=== PATIENT | female | born 1985 | race Caucasian/White ===

== ENCOUNTER 2017-03-26 18:59 | Emergency (ER) | payer SELFPAY ==
--- NOTE | 2017-03-26 19:47 | UC ---
Abdominal Pain Female HPI - HPI Summary HPI Summary: 31 yo female with lower abd pain 4 days Pain preceded nausea/vomiting and diarrhea vomiting has let up hurts to move has been diaphoretic no UTI symptoms now has lower back pain and leg pains weak - History of Current Complaint Chief Complaint: UCAbdominalPain Stated Complaint: ABDOMINAL COMPLAINT Time Seen by Provider: 03/26/17 19:38 Hx Obtained From: Patient Hx Last Menstrual Period: 3 wks ago Onset/Duration: Gradual Onset, Lasting Days Timing: Constant Severity Initially: Moderate Severity Currently: Severe Pain Intensity: 7 - worse at times Pain Scale Used: 0-10 Numeric Location: Discrete At: RLQ, Discrete At: LUQ, Suprapubic Character: Aching, Cramping, Sharp Aggravating Factor(s): Food Alleviating Factor(s): Nothing Associated Signs and Symptoms: Positive: Diaphoresis, Back Pain, Decreased Appetite, Nausea, Vomiting, Diarrhea Allergies/Adverse Reactions: Allergies Allergy/AdvReac Type Severity Reaction Status Date / Time No Known Allergies Allergy Verified 03/26/17 19:31 Home Medications: Home Medications Ibuprofen TAB* [Advil TAB*] 2 cap PO BID PRN 03/26/17 [History Confirmed ] PMH/Surg Hx/FS Hx/Imm Hx Previously Healthy: Yes - Surgical History Surgical History: Yes Surgery Procedure, Year, and Place: tonsils - Family History Known Family History: Positive: Hypertension - Social History Alcohol Use: Occasionally Substance Use Type: None Smoking Status (MU): Never Smoked Tobacco Review of Systems Constitutional: Fatigue Skin: Negative Eyes: Negative ENT: Negative Respiratory: Negative Cardiovascular: Negative Gastrointestinal: Abdominal Pain, Vomiting, Diarrhea, Nausea Genitourinary: Negative Motor: Negative Neurovascular: Negative Musculoskeletal: Negative Neurological: Negative Psychological: Negative Is Patient Immunocompromised?: No All Other Systems Reviewed And Are Negative: Yes Physical Exam Triage Information Reviewed: Yes Appearance: Well-Appearing, No Pain Distress, Well-Nourished Vital Signs: Initial Vital Signs Temp 97.8 F 03/26/17 19:26 Pulse 72 03/26/17 19:26 Resp 12 03/26/17 19:26 BP 128/80 03/26/17 19:26 Pulse Ox 99 03/26/17 19:26 Vital Signs Reviewed: Yes Eyes: Positive: Conjunctiva Clear ENT: Positive: Hearing grossly normal, Pharynx normal, TMs normal. Negative: Nasal congestion, Nasal drainage, Trismus, Muffled/hoarse voice Neck: Positive: Supple, Nontender, No Lymphadenopathy Respiratory: Positive: Lungs clear, Normal breath sounds, No respiratory distress, No accessory muscle use Cardiovascular: Positive: RRR, No Murmur Abdomen Description: Positive: No Organomegaly, Soft, Other: - see image. Negative: Nontender Bowel Sounds: Positive: Present Musculoskeletal: Positive: ROM Intact, No Edema Neurological: Positive: Alert Psychological Exam: Normal Skin Exam: Normal Abd Pain Female Course/Dx - Course Course Of Treatment: see urine result. Will send pt to ER via EMS for evaluation of RLQ abd pain. discussed with Dr Callaway ....to [facility] [place] [facility] - Differential Dx/Diagnosis Provider Diagnoses: abdominal pain of uncertain cause Discharge - Discharge Plan Condition: Good Disposition: TRANS HIGHER LVL OF CARE FAC Images Front/Back of Body, Lg ([place]): 1 - tender across lower abd, worse in the RLQ
[2017-03-26] MEDS ORDERED: NS 0.9% 1000 ML* 1,000 ML BOLUS ONE (20:41)
[2017-03-26 21:16] VITALS: BP 115/70
== END 2017-03-26 21:20 | disposition short-term general hospital (02) ==
LOC: UCEAST 18:59
DX: R10.30 Lower abdominal pain, unspecified (principal); R11.2 Nausea with vomiting, unspecified; R19.7 Diarrhea, unspecified; R53.83 Other fatigue; M54.5 Low back pain; M79.605 Pain in left leg; M79.604 Pain in right leg
CPT/HCPCS: 81003; 87086; 99203; G0463

== ENCOUNTER 2017-03-26 21:42 | Emergency (ER) | payer BC ==
[2017-03-26] MEDS ORDERED: Ketorolac INJ* 30 MG/ML 1 ML VIAL IV PUSH ONE (22:18)
[2017-03-26] MEDS ORDERED: Ondansetron INJ* 2 MG/ML VIAL IV ONE (22:18)
[2017-03-26] MEDS ORDERED: NS 0.9% 1000 ML* 2,000 ML IV ONE (22:18)
[2017-03-26 22:45] LABS: Hematocrit 35 % (35-47); Hemoglobin 11.9 g/dl (12.0-16.0); Mean Corpuscular HGB Conc 35 g/dl (31-36); Mean Corpuscular Hemoglobin 31 pg (27-31); Mean Corpuscular Volume 91 fL (80-97); Mean Platelet Volume 9 um3 (7.4-10.4); Red Blood Count 3.79 10^6/ul (4.0-5.4); Red Cell Distribution Width 13 % (10.5-15); White Blood Count 3.8 10^3/ul (3.5-10.8)
[2017-03-26 22:46] LABS: Add Diff/Slide Review? Manual Diff Added; Comments Flag Yes
[2017-03-26 22:48] LABS: Urine Bacteria Absent (Absent); Urine Bilirubin Negative (Negative); Urine Glucose Negative (Negative); Urine Nitrite Negative (Negative)
[2017-03-26 23:04] LABS: ALT 12 U/L (7-52); AST 19 U/L (13-39); Albumin 3.5 g/dL (3.2-5.2); Alkaline Phosphatase 29 U/L (34-104); Anion Gap 9 mmol/L (2-11); BUN/Creatinine Ratio 13.2 (8-20); Blood Urea Nitrogen 9 mg/dL (6-24); C Reactive Protein 57.82 mg/L (< 5.00); CO2 Carbon Dioxide 20 mmol/L (22-32); Calcium 8.2 mg/dL (8.6-10.3); Chloride 106 mmol/L (101-111); EGFR African American 128.2 (>60); EGFR Non-African American 99.6 (>60); Globulin 2.5 g/dL (2-4); Glucose 80 mg/dL (70-100); Lipase 32 U/L (11.0-82.0); Potassium 3.2 mmol/L (3.5-5.0); Sodium 135 mmol/L (133-145)
[2017-03-26 23:13] LABS: Add Path Review? YES; Eosinophils % 1 % (0-6); Neutrophil % 49 % (38-83); RBC Morphology Normal (Normal); Reactive Lymph % 2 % (0-6)
[2017-03-27] MEDS ORDERED: Morphine INJ* 4 MG/ML 1 ML CARPUJECT IV ONE (00:11)
[2017-03-27] MEDS ORDERED: Ondansetron ODT TAB* 4 MG PO ONE (00:54)
[2017-03-27] MEDS ORDERED: HYDROcodone/ACETAMIN 5-325 MG* 1 TAB PO ONE (00:54)
[2017-03-27] MEDS ORDERED: Sulfamethox/Trimethoprim DS 800/160* TAB PO ONE (00:54)
[2017-03-27 01:40] VITALS: BP 113/70
--- NOTE | 2017-03-27 14:26 | RAD ---
INDICATION: LEFT flank pain and hematuria. Nausea and diarrhea. Urolithiasis versus pyelonephritis. COMPARISON: No relevant prior exams available on the [facility] PACS. TECHNIQUE: Multidetector CT images were obtained from the lung bases to the ischial tuberosities. Evaluation of the viscera is limited without IV contrast. Multiplanar reformation. REPORT: Unremarkable visualized inferior thorax. Unremarkable unenhanced liver, gallbladder, pancreas, spleen. Negative for CT abnormality of the upper GI, small bowel, infra cecal appendix, colon. Physiologic trace free pelvic fluid. Negative for free air or hernias. Normal adrenal glands. Negative for urolithiasis or hydronephrosis. The LEFT kidney is larger than the RIGHT which may reflect normal variation or acute inflammation. Negative for perinephric or periureteral inflammatory stranding. Unremarkable nondilated ureters and urinary bladder. Coarse shaped contraceptive device at the cervix. Unremarkable uterus and adnexal regions. Negative for lymphadenopathy. Normal diameter abdominal aorta and iliac arteries. Physiologic distention of the IVC. Negative for suspicious osseous lesions. IMPRESSION: 1. Negative for urolithiasis or hydronephrosis. Mild prominence of the LEFT kidney compared with the RIGHT which may represent normal variation or potentially inflammation of the kidney. 2. Normal appendix documented. No acute abnormality of the alimentary tract evident.
--- NOTE | 2017-04-08 15:24 | ED ---
Eugene Zuñiga Thomas, scribed for Jd Coley MD on 03/26/17 at 2219 . Abdominal Pain/Female - HPI Summary HPI Summary: The pt is a 31 y/o F referred from [facility] and c/o lower abd pain that began three days ago. The pain has been gradually building over the course of the last three days. The pt rates the pain 6/10. The pain is aggravated and alleviated by nothing. 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 Pt additionally c/o lower back pain (worse on the left, onset today, and worsened when she sits up too quickly), myalgia (in hips, knees), vomiting, nasal congestion, headache (two days ago and relieved in the ED), and diarrhea. She says that she is lightheaded when she stands up quickly. Pt denies sore throat, coughing, rhinorrhea, CP, and urinary symptoms. She denies a history of pyelonephritis. She denies known recent tick exposure. She ate two pieces of toast today. PMHx: previously healthy. PSHx: tonsillectomy, abscess removal on throat. SHx: no smoking, occasional alcohol use, no illicit drug use. FHx: HTN. She saw Dr. Cardenas at [facility]. She does not have a PCP. 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 She has a Nuva ring. She is accompanied by a woman. 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 Negative: Fever, Cough, Chest Pain, Blood in Stool, Urinary Symptoms Allergies/Adverse Reactions: Allergies Allergy/AdvReac Type Severity Reaction Status Date / Time Morphine Allergy Altered Verified 03/27/17 01:27 Mental Status PMH/Surg Hx/FS Hx/Imm Hx Previously Healthy: Yes Cardiovascular History: Denies: Hx Congestive Heart Failure Respiratory History: Denies: Hx Chronic Obstructive Pulmonary Disease (COPD) - Surgical History Surgery Procedure, Year, and Place: Tonsillectomy, abscess removal on throat Infectious Disease History: Yes Infectious Disease History: Denies: Traveled Outside the [place] in Last 30 Days - Family History Known Family History: Positive: Hypertension - Social History Alcohol Use: Occasionally Alcohol Amount: red wine with dinner at times Substance Use Type: Reports: None Smoking Status (MU): Never Smoked Tobacco Review of Systems Negative: Fever, Chills Negative: Erythema - eyes Positive: Nasal Discharge, Other - POS: nasal congestion. Negative: Sore Throat Negative: Chest Pain Negative: Shortness Of Breath, Cough Positive: Abdominal Pain - lower abd, onset three days ago, Vomiting, Diarrhea. Negative: Nausea Positive: no symptoms reported. Negative: dysuria, hematuria Positive: Myalgia, Other - POS: lower back pain (L>R, onset today, worsened when sits up too quickly). Negative: Edema - eyes Negative: Rash Neurological: Other - NEG: dizziness All Other Systems Reviewed And Are Negative: Yes Physical Exam - Summary Physical Exam Summary: Constitutional: Well-developed, Well-nourished, Alert. (-) Distressed Skin: Warm, Dry HENT: Normocephalic; Atraumatic Eyes: Conjunctiva normal Neck: Musculoskeletal ROM normal neck. (-) JVD, (-) Stridor, (-) Tracheal deviation Cardio: Rhythm regular, rate normal, Heart sounds normal; Intact distal pulses; The pedal pulses are 2+ and symmetric. Radial pulses are 2+ and symmetric. (-) Murmur Pulmonary/Chest wall: Effort normal. (-) Respiratory distress, (-) Wheezes, (-) Rales Abd: She has left CVA and LLQ tenderness. Soft, (-) Distension, (-) Guarding, (- ) Rebound Musculoskeletal: (-) Edema Lymph: (-) Cervical adenopathy Neuro: Alert, Oriented x3 Psych: Mood and affect Normal Triage Information Reviewed: Yes Vital Signs On Initial Exam: Initial Vitals Temp Pulse Resp BP Pulse Ox 98.9 F 80 18 121/80 100 03/26/17 21:57 03/26/17 21:57 03/26/17 21:57 03/26/17 21:57 03/26/17 21:57 Vital Signs Reviewed: Yes - Scar Coma Scale Coma Scale Total: 15 Diagnostics - Vital Signs Vital Signs Temp Pulse Resp BP Pulse Ox 03/26/17 21:57 98.9 F 80 18 121/80 100 - Laboratory Result Diagrams: 03/26/17 22:31 03/26/17 22:31 Lab Statement: Any lab studies that have been ordered have been reviewed, and results considered in the medical decision making process. - CT CT Abd/Pel CT Interpretation: No Acute Changes - CT Abd/Pel shows no discrete pathology and possible diarrheal illness. ED Physician has reviewed this report and agrees. CT Interpretation Completed By: Radiologist Re-Evaluation - Re-Evaluation First Eval Re-Evaluation Time: 00:52 Change: Improved Comment: The patient is tolerating PO intake and her condition has improved. Abdominal Pain Fem Course/Dx - Course Course Of Treatment: The pt is a 31 y/o F referred from [facility] and c/o lower abd pain that began three days ago. The pain has been gradually building over the course of the last three days. The pt rates the pain 6/10. The pain is aggravated and alleviated by nothing. 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 Pt additionally c/o lower back pain (worse on the left, onset today, and worsened when she sits up too quickly), myalgia (in hips, knees ), vomiting, nasal congestion, headache (two days ago and relieved in the ED), and diarrhea. She says that she is lightheaded when she stands up quickly. Pt denies sore throat, coughing, rhinorrhea, CP, and urinary symptoms. She denies a history of pyelonephritis. She denies known recent tick exposure. She ate two pieces of toast today. PMHx: previously healthy. PSHx: tonsillectomy, abscess removal on throat. SHx: no smoking, occasional alcohol use, no illicit drug use. FHx: HTN. She saw Dr. Cardenas at [facility]. She does not have a PCP. 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 She has a Nuva ring. She is accompanied by a woman. In the ED course she was given Toradol, Zofran, and IV fluids. Bloodwork shows RBC 3.79, Hgb 11.9, potassium 3.2, CO2 20, calcium 8.2, CRP 57.82. UA shows ketones 1+, blood 2+, leukocyte esterase 1+, WBC 1+. CT Abd/Pel shows no discrete pathology and possible diarrheal illness. ED Physician has reviewed this report and agrees. At re- evaluation at 00:52, the patient is tolerating PO intake and her condition has improved. She is diagnosed with gastroenteritis and pyelonephritis. She was told to follow up with urgent care in 2-3 days. Patient is agreeable with this plan. - Diagnoses Provider Diagnoses: Gastroenteritis, Pyelonephritis Discharge - Discharge Plan Condition: Stable Disposition: HOME Prescriptions: HYDROcodone/ACETAMIN 5-325 MG* [[place] 5-325 TAB*] 1 tab PO Q6H PRN #16 tab MDD 4 PRN Reason: Pain - Moderate To Severe Ondansetron ODT TAB* [Zofran 4 MG Odt TAB*] 4 mg PO Q8H PRN #10 tab.odt PRN Reason: Nausea Sulfamethox/Trimethoprim DS* [Bactrim DS 800/160 TAB*] 1 tab PO BID #28 tab Patient Education Materials: Gastroenteritis (ED), Kidney Infection (ED) Forms: *Work Release Referrals: [facility] [Outside] - If Needed No Primary Care Phys,NOPCP [Primary Care Provider] - Additional Instructions: Follow up at Urgent Care in 2-3 days. You are off work until cleared by Urgent Care. Return to the emergency department for any changing or worsening symptoms. Because you are new to the area, you can use the [facility] referral service to find a primary care physician. The documentation as recorded by the Eugene hogue Thomas accurately reflects the service I personally performed and the decisions made by , Jd Coley MD.
== END 2017-03-27 01:39 | disposition home or self-care (01) ==
LOC: ED 21:42
DX: K52.9 Noninfective gastroenteritis and colitis, unspecified (principal); N12 Tubulo-interstitial nephritis, not specified as acute or chronic; R10.30 Lower abdominal pain, unspecified; M54.5 Low back pain
CPT/HCPCS: 36415; 74176; 80053; 81003; 81015; 83605; 83690; 84702; 85025; 85060; 86140; 96374; 96375; 99283; A9270-GY; J1885; J2270; J2405